=== PATIENT | female | born 1990 | race Two or more races ===

== ENCOUNTER 2021-11-15 22:32 | Emergency (ER) | payer MEDICAID ==
[~2021-11-15] VITALS: Ht 154.9 cm; Wt 63.6 kg
[2021-11-15] MEDS ORDERED: IBUPROFEN 600 MG TAB PO ONE (22:45)
[2021-11-16 01:22] VITALS: BP 111/72
== END 2021-11-16 05:25 | disposition left against medical advice (07) ==
LOC: ER 22:32
DX: S01.01XA Laceration without foreign body of scalp, initial encounter (principal); M54.2 Cervicalgia; Z53.21 Procedure and treatment not carried out due to patient leaving prior to being seen by health care provider; V89.2XXA Person injured in unspecified motor-vehicle accident, traffic, initial encounter; Y93.89 Activity, other specified; Y92.89 Other specified places as the place of occurrence of the external cause; Y99.8 Other external cause status